=== PATIENT | female | born 1995 | race Two or more races ===

== ENCOUNTER 2024-10-24 08:45 | Emergency (ER) | payer MEDICAID, SELFPAY ==
[2024-10-24] VITALS (15 sets, daily range): BP systolic 97–137; BP diastolic 56–84; PULSE 71–99; RESP 16–97; TEMP 36.5–37.1; O2SAT 98–100; BMI 31.1
--- NOTE | 2024-10-24 | XR_ITS ---
Examinations: MRI Brain without intravenous contrast. MRA brain without intravenous contrast. MRA carotids without intravenous contrast 3-D vascular reconstructions Date and time of exam: October 24, 2024 0930 hours INDICATIONS: Stroke alert, onset focal neurologic deficit today, acute dizziness, slurred speech, right-sided facial numbness extremity weakness Technique: Multiple axial and sagittal images of the brain have been obtained MRA brain carotid images without contrast obtained, including 3-D postprocessing, vascular maximum intensity projection images Findings: Sellaturcica is not enlarged. The optic chiasm and infundibular stalk are not remarkable. Prepontine and interpeduncular cisterns are not enlarged. No localized enlargement of the medulla or david. Fourth ventricle and cerebellar tonsils normal in position. Subacute hemorrhage is not seen. Significant chronic ethmoid frontal sinusitis, retention cyst left maxillary antrum Fourth ventricle is midline. Mass in the cerebellopontine angle region is not evident. 7th and 8th nerve complexes exhibits symmetry. Globes are symmetrical with no retro-orbital mass. Increased white matter signal not seen Diffusion-weighted images demonstrate no focus of restricted diffusion Mass-effect upon the ventricular system is not identified. MRA carotid images no carotid stenoses. MRA brain images no large vessel occlusions Impression: Negative for acute hemorrhage, mass effect or midline shift No acute infarct No MR findings diagnostic for demyelinating disease
--- NOTE | 2024-10-24 08:50 | EDNOTE_ITS ---
Neuro Symptoms Deficit-RME/HPI General Chief Complaint: Neuro Symptoms/Deficit Stated Complaint: I feel I'm going to faint, body is numb Time Seen by Provider: 10/24/24 08:50 Arrival date/time: 10/24/24 08:45 RME / HPI RME / HPI Narrative: This section includes all my notes and documentations, including HPI, PE, and ED course.? 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 States she was standing when she suddenly had a near syncopal feeling with right sided numbness and heaviness. No loss of consciousness reported. States she woke up around 6am today and felt at her usual state of health. Was last known well at 08:30 am today. Denies any headaches, chest pain, shortness of breath, n/v/d. No other complaints. ROS: All negative except as documented in HPI. Physical Exam: General:? Alert and oriented.? No acute distress when remaining still.?? Eyes:? Conjunctivae and lids clear.? ENT:? No nasal congestion.? Neck:? Supple.? Heart:? RRR.? Lungs:? No respiratory distress.? Good air movement.? No rhonchi, wheezing, rales.?? Abdomen:? Soft and nontender.?? Legs:? No clubbing, cyanosis, edema.? Skin:? Warm and dry.?? Neuro:? Alert and oriented X 3.??CN 2-12 grossly normla. No peripheral motor deficits. I reviewed all diagnostic test results. My interpretation of the EKG is?sinus rhythm with no acute ST-T changes. My review of the head CT report is?no acute findings. My review of the brain MRI report is no acute findings. My review of the OB ultrasound report is IUP. Blood tests and urine tests?remarkable for Hgb 7.1. Influenza positive. At this point, diagnoses include?severe anemia and influenza. Treatment here included?IVF and blood transfusion and tamiflu. Significant improvement noted. Based on my best medical judgment, made decision no further evaluation or treatment indicated at this time.? Patient understands and agrees to the discharge instructions customized and printed, see below. Discharge Instructions from Dr. Young printed for you: 1. Fortunately, there is no life-threatening condition. Such as stroke or hear t attack. 2. But you have severe anemia. To help your body produce more red blood cells, take iron pills as prescribed today. And increase food rich in iron, such as red meat and egg yolks. 3. For influenza, take Tamiflu as prescribed. 4. For good hydration, increase oral fluid and maintain clear urine. If dark or yellow, increase oral fluid. Zofran for nausea/vomiting. 5. See a private doctor on 10/27/2024 for recheck and further care. Ask to review all test results and official radiology reports, to make sure you receive all necessary follow-ups and monitoring. Ask for help to see cooling tower technician for care. 6. Seek immediate medical care with worsening or with any concerns. Sheng Young MD Related Data Home Medications ?Medication ?Instructions ?Recorded ?Confirmed vitamin with calcium 1 tab PO QDAY 11/10/18 10/24/24 no.72-iron 27 mg-folic acid 1 mg tablet ( Vitamins Plus Low Iron) Previous Rx's ?Medication ?Instructions ?Recorded misoprostol 200 mcg tablet 800 mcg (4 x 200 mcg) PO .x1 #4 06/25/24 tabs ferrous sulfate 324 mg (65 mg 324 mg PO BID #60 tabs 08/07/24 iron) tablet,delayed release ferrous sulfate 325 mg (65 mg 325 mg PO BID #60 tabs 10/24/24 iron) tablet ondansetron 4 mg disintegrating 4 mg PO TID PRN nausea and 10/24/24 tablet vomiting #30 tabs Allergies Allergy/AdvReac Type Severity Reaction Status Date / Time No Known Allergies Allergy Verified 09/27/20 18:48 Review of Systems Review of Systems Systems Reviewed: All systems reviewed, normal except as documented Past Medical History Past Medical History NEUROLOGIC: Negative Neurological Disorders CARDIAC: Negative Cardiac Disorders GASTROINTESTINAL: Negative Gastrointestinal Disorders GENITOURINARY: Negative Genitourinary Disorders REPRODUCTIVE: Positive Previous Pregnancies ENDOCRINE: Negative Endocrine Disorders OTHER HISTORY: Positive Hospitalization (CHILDBIRTH) Family History FAMILY HISTORY: Negative Family Psychiatric Problems, Family Respiratory Disorders, Family Cardiac Disorders, Family Gastrointestinal Problems, Family Cancer, Family Surgery or Family Anesthesia Reaction Surgical History SURGICAL: Negative Section Social History SMOKING STATUS: Never smoker ED Exam Narrative Physical exam: As noted in HPI Course Quality Measures Suspected type of Stroke: Non Acute Last known well (date): 10/24/24 Last known well (time): 08:30 Tenecteplase given: Reason(s) TPA not given: Stroke severity too mild (non-disabling) not given stroke Orders Category Date Time Status Bedside Blood Glucose NOW Care 10/24/24 08:52 Completed Bedside COVID-19 Antigen Test NOW Care 10/24/24 10:45 Completed Bedside Influenza A&B Antigen Test NOW Care 10/24/24 10:45 Completed Assistant Editor NOW Care 10/24/24 08:52 Completed Continuous Pulse Oximetry NOW Care 10/24/24 08:52 Completed EKG (ED ONLY) *Do not use* NOW Care 10/24/24 08:52 Completed In and Out Catheter NEEDED Care 10/24/24 08:52 Completed Insert IV NOW Care 10/24/24 08:52 Completed MRI Screening NOW Care 10/24/24 09:18 Completed NIH Stroke Scale now Care 10/24/24 08:52 Completed NPO NOW Care 10/24/24 08:52 Completed Nurse Swallow Screen x1 Care 10/24/24 08:52 Completed Transfuse,blood/blood products NOW Care 10/24/24 10:55 Completed Consult to Neurology / Tele-Neurology Routine Cons 10/24/24 08:[address] angio stroke protocol Stat Exams 10/24/24 08:[address] stroke protocol Stat Exams 10/24/24 08:52 Completed EKG (ED Only) Stat Exams 10/24/24 08:52 Draft MR stroke protocol Stat Exams 10/24/24 Completed US OB <= 14 weeks fetus Stat Exams 10/24/24 10:53 Completed Beta HCG,Quantitative Stat Lab 10/24/24 09:08 Completed CBC Stat Lab 10/24/24 09:08 Completed Comprehensive Metabolic Panel Stat Lab 10/24/24 09:08 Completed Magnesium Stat Lab 10/24/24 09:08 Completed Partial Thromboplastin Time Stat Lab 10/24/24 09:08 Completed Prothrombin Time with INR Stat Lab 10/24/24 09:08 Completed Troponin I Stat Lab 10/24/24 09:08 Completed Type and Screen Stat Lab 10/24/24 11:05 Completed Urinalysis Stat Lab 10/24/24 10:28 Completed prbc [Red Blood Cells] Stat Lab 10/24/24 11:05 Completed Acetaminophen Ivpb [Ofirmev Inj] Med 10/24/24 13:00 Discontinued 1,000 mg in 100 ml IV NOW DiphenhydrAMINE INJ [Benadryl Inj] Med 10/24/24 13:00 Discontinued 25 mg IVP X1 ONE Ondansetron Inj [Zofran Inj] Med 10/24/24 08:52 Discontinued 4 mg IV Q4HR PRN Oseltamivir [Tamiflu] Med 10/24/24 11:32 Discontinued 75 mg PO X1 ONE Sodium Chloride 0.9% 1000 ml [Ns] 1,000 ml Med 10/24/24 09:00 Discontinued IV Q10H Oxygen Delivery NOW RT 10/24/24 08:52 Completed Vital Signs Vital signs: Vital Signs Pulse Rate 99 10/24/24 09:00 Respiratory Rate 18 10/24/24 09:00 Blood Pressure 137/84 H 10/24/24 09:00 Pulse Oximetry (%) 100 10/24/24 09:00 Oxygen Delivery Method Room Air 10/24/24 09:00 Pulse ox is 100% on room air which is adequate. Neuro Symptoms / Deficit Patient data External records reviewed:: [facility] previous records (I reviewed ED visit on 08/07/2024) Clinical information provided by:: patient Social determinants that could affect healthcare access:: none Patient has the following chronic illnesses:: Anemia, hx of blood transfusion How is presenting disease/condition affected by chronic disease/condition?: exacerbated by Evaluation data The following diagnostics were reviewed and interpreted by me:: lab results, radiology exam(s) and EKG tracing(s) (My interpretation of the EKG: NSR (77 bpm) with no ST-T changes. Sheng Young MD) Lab and/or radiology exams considered but not ordered:: None Interpretation Summary: severe anemia and influenza and 8 week IUP Medications / Prescriptions Medications or Prescriptions considered but not ordered:: None Medication administrations:: Medication Administration History Discontinued Medications Diphenhydramine HCl (Diphenhydramine Inj 50 Mg/Ml Vial) 25 mg IVP X1 ONE Stop: 10/24/24 13:01 Last Admin: 10/24/24 17:34 Dose: 25 mg Documented By: ALBERT Sodium Chloride (Ns) 1,000 mls @ 100 mls/hr IV Q10H CARMEN Stop: 10/25/24 08:59 Last Admin: 10/24/24 11:09 Dose: 100 mls/hr Documented By: ALBERT Acetaminophen (Ofirmev Inj) 1,000 mg in 100 mls @ 250 mls/hr IV NOW ONE Stop: 10/24/24 13:23 Last Admin: 10/24/24 17:36 Dose: 250 mls/hr Documented By: ALBERT Ondansetron HCl (Ondansetron Inj 2 Mg/Ml Inj 2 Ml) 4 mg IV Q4HR PRN PRN Reason: NAUSEA OR VOMITING Stop: 11/23/24 08:51 Oseltamivir Phosphate (Oseltamivir 75 Mg Capsule) 75 mg PO X1 ONE Stop: 10/24/24 11:33 Last Admin: 10/24/24 12:13 Dose: 75 mg Documented By: ALBERT Treatment here included?IVF and blood transfusion and tamiflu. Consultations Consultation(s) initiated? (list below): Yes Consultation #1 (Physician, Specialty, Details): I spoke with teleneurologist Dr. Nolan. States patient is not a tpa candidate given symptoms are non disabling. Time: 09:25 Diagnosis Neuro Differential Diagnosis: convulsions, delirium, subarachnoid hemorrhage, peripheral neuropathy, cerebrovascular accident, multiple sclerosis and transient cerebral ischemia Most likely diagnosis given after review of the tests above:: Severe anemia Influenza Admission Indicated Admission indicated?: not indicated Explain why admission is indicated or not indicated:: Admission criteria not met Admission Request Was there a request for admission?: No Disposition Plan Disposition Plan: Discharge Discharge Attestation Discharge Attestation: The patient and all family members were given an opportunity to ask questions and understood the discharge instructions. Discharge instructions specifically effects, indications for sooner follow up or return to the emergency department, and the expected course of current diagnosis. Patient condition: Stable Discharge Plan Plan Patient Disposition: HOME (Self Care) Prescriptions/Referrals Prescriptions/Med Rec: New ferrous sulfate 325 mg (65 mg iron) tablet 325 mg PO BID Qty: 60 5RF ondansetron 4 mg tablet,disintegrating 4 mg PO TID PRN (Reason: nausea and vomiting) Qty: 30 0RF No Action Vitamin Plus Low Iron 27 mg iron- 1 mg Tablet 1 tab PO QDAY misoprostol 200 mcg tablet 800 mcg PO .x1 Qty: 4 0RF Rx Instructions: Take 06/27/2024, morning ferrous sulfate 324 mg (65 mg iron) tablet,delayed release (DR/EC) 324 mg PO BID Qty: 60 0RF Referrals: Kemal Rico MD [Primary Care Provider] - In 1 week Problem List Clinical Impression: Severe anemia, Influenza, Patient/Caregiver Discharge Instructions Discharge Activity: activity as tolerated Education Materials: ED Anemia, Iron-Deficiency (Adult), ED Influenza (Adult), ED , New Dx Additional Instructions: Discharge Instructions from Dr. Young printed for you: 1. Fortunately, there is no life-threatening condition. Such as stroke or heart attack. 2. But you have severe anemia. To help your body produce more red blood cells, take iron pills as prescribed today. And increase food rich in iron, such as red meat and egg yolks. 3. For influenza, take Tamiflu as prescribed. 4. For good hydration, increase oral fluid and maintain clear urine. If dark or yellow, increase oral fluid. Zofran for nausea/vomiting. 5. See a private doctor on 10/27/2024 for recheck and further care. Ask to review all test results and official radiology reports, to make sure you receive all necessary follow-ups and monitoring. Ask for help to see cooling tower technician for care. 6. Seek immediate medical care with worsening or with any concerns. Instrucciones de olena del Dr. Young impresas para usted: 1. Afortunadamente, no hay ninguna afecci?n que ponga en peligro guerin dario, hiro un derrame cerebral o un ataque card?aco. 2. Naveed tiene anemia grave. Para ayudar a guerin cuerpo a producir m?s gl?bulos rojos, tome pastillas de vivienne seg?n lo prescrito hoy y aumente el consumo de alimentos ricos en vivienne, hiro wanda romero y yemas de huevo. 3. Para la gripe, tome Tamiflu seg?n lo prescrito. 4. Para elliot buena hidrataci?n, aumente la ingesta de l?quidos por v?a oral y mantenga la orina justo. Si es oscura o amarilla, aumente la ingesta de l?quidos por v?a oral. Zofran para las n?useas y los v?mitos. 5. Visite a un m?dico privado el 27/10/2024 para que le edy un nuevo control y le brinden m?s atenci?n. Pida que revisen todos los resultados de las pruebas y los informes radiol?gicos oficiales para asegurarse de recibir todos los seguimientos y controles necesarios. Pida ayuda para cyaden a un obstetra para recibir atenci?n . 6. Busque atenci?n m?dica inmediata si empeora o tiene alguna inquietud. Print Language: Tamazight Stand Alone Forms: [employer]ney Award Info., Work/School Release, Patient Portal Info Letter
--- NOTE | 2024-10-24 08:52 | XR_ITS ---
Examination: CT brain head without contrast. 2-D sagittal coronal reconstructions Date and time of exam:October 24, 2024 at 0859 hours INDICATIONS: Stroke alert, onset focal neurologic deficit, right-sided facial numbness today CTDI: vol (mGy):48 DLP: (mGycm):985 Technique: Multiple CT axial sections of the brain have been obtained, 5 mm slice thickness. Contrast has not been administered. 2-D sagittal, coronal reconstructions have been obtained Low dose protocols were performed. One or more of the following dose reduction techniques were used; automated exposure control, adjustment of the mA and/or KV according to patient size, use of iterative reconstruction technique. Findings: No significant ventricular enlargement. Intra-axial or extra-axial hemorrhage density is not seen. No mass effect or midline shift Basal cisterns are not remarkable. Fourth ventricle is midline. Cranial vault intact. Impression: Negative for acute hemorrhage, mass effect or midline shift Brain MRI MRA without contrast, stroke protocol, would best assess for demyelinating disease, acute ischemic change
--- NOTE | 2024-10-24 08:52 | EKG_ITS ---
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
[2024-10-24 09:22] LABS: Basophils % (Auto) 1 % (0-2.5); Eosinophils # (Auto) 0.1 Thou/mm3 (0.0-0.5); Eosinophils % (Auto) 3 % (0-10); Immature Granulocytes % (Auto) 1 % (0-0); Immature Granulocytes Auto 0.03 Thou/mm3 (0.00-0.00); Lymphocytes # (Auto) 0.9 Thou/mm3 (1.0-4.8); Lymphocytes % (Auto) 18 % (10-50); Mean Corpuscular HGB Conc 28.4 g/dl (31.0-37.0); Mean Corpuscular Hemoglobin 18.5 pg (25.0-35.0); Mean Corpuscular Volume 65 fL (80-100); Monocytes # (Auto) 0.7 Thou/mm3 (0.0-0.8); Monocytes % (Auto) 13 % (0-12); Neutrophils # (Auto) 3.4 Thou/mm3 (1.8-7.7); Neutrophils % (Auto) 65 % (37-80); Nucleated Red Blood Cell % 0 /100 WBC (0); Platelet Count 338 Thou/mm3 (140-440); RDW Standard Deviation 44.2 fL (36.4-46.3); Red Blood Count 3.83 Miln/mm3 (4.00-5.20); White Blood Count 5.3 Thou/mm3 (3.6-11.0)
--- NOTE | 2024-10-24 09:32 | ESCONSULT_ITS ---
Tele Neuro Consultation Consultation Date 10/24/24 Consultation Narrative [facility] Patient Name:???Gema Edmondson Date of :???1995 Date of Service:???10/24/2024 08:52:59 Diagnosis:?R20.2 - Paresthesia of skin Impression: ?Patient is a 29 yo F currently 8 weeks with no PMH who p/w dizziness, presyncopal feeling with associated right sided numbness and heaviness. LNK 830 AM per patient. On exam NIHSS of 1, for increased sensation on the right side/reduced on the left. No objective weakness or drift. No associated headache. She is able to ambulate unassisted. CTH showed no acute findings. BP 137/84. Uncertain etiology of current symptoms. History not c/w CVST, no current headache. Possible stroke cannot be completely excluded. Given mild, nondisabling deficits (with increased sensation as opposed to reduced sensation on her subjectively affected side) thrombolytic therapy is not recommended at this time. The potential risks in the setting of outweigh the benefits. However, will obtain STAT MRI brain to evaluate for acute ischemia which may warrant consideration of thrombolytic therapy, underlying demyelinating disease or acute intracranial pathology. ?Addendum: ?Subsequent MRI brain images and read reviewed. No acute intracranial pathology noted. No acute ischemia or demyelinating disease. ? Our recommendations are outlined below. Recommendations: ? Bedside Swallow Eval ? DVT Prophylaxis ? IV Fluids, Normal Saline ? Head of Bed 30 Degrees ? Euglycemia and Avoid Hyperthermia (PRN Acetaminophen) ?- Rec consultation with OB. With negative MRI brain corresponding int racranial pathology is not suspected. History provided not suggestive of seizure or CVST/DVT at this time. ?-Can consider outpt neurology follow-up in 1-3 weeks. ?-If recurrent event or new onset headaches seek immediate medical attention Sign Out: ? Discussed with Emergency Department Provider Advanced Imaging: Advanced Imaging Deferred because: Patient is , risk of iodinated contrast. MRI brain obtained instead Metrics: Last Known Well: 10/24/2024 08:30:00 Dispatch Time: 10/24/2024 08:52:59 Arrival Time: 10/24/2024 08:45:00 Initial Response Time: 10/24/2024 08:56:32Symptoms: dizziness, right sided numbness. Initial patient interaction: 10/24/2024 09:00:00 NIHSS Assessment Completed: 10/24/2024 09:17:00Patient is not a candidate for Thrombolytic. Thrombolytic Medical Decision: 10/24/2024 09:19:59Patient was not deemed candidate for Thrombolytic because of following reasons: other diagnosis suspected Uncertain etiology of current symptoms. Possible stroke cannot be completely excluded. Given mild, nondisabling deficits (with increased sensation as opposed to reduced sensation on her subjectively affected side) thrombolytic therapy is not recommended at this time. THe potential risks in the setting of outweigh the benefits. . CT head showed no acute hemorrhage or acute core infarct. I personally Reviewed the CT Head and it Showed no acute findings Primary Provider Notified of Diagnostic Impression and Management Plan on: 10/24/2024 09:27:26 History of Present Illness:Patient is a 29 year old Female. Patient was brought by private transportation with symptoms of dizziness, right sided numbness. Patient is a 29 yo F currently 8 weeks with no PMH who p/w dizziness, presyncopal feeling with associated right sided numbness and heaviness. LNK 830 AM per patient. She reports she awoke at 6AM in her USOH. She was standing up when she began to feel very dizzy and light headed as if she was going to pass out. She felt as if she could not get speak at the time. Followed by numbness of her right side, with feeling of heaviness. No LOC. No vision changes. No associated headache. No vision changes. No confusion. No abnormal movements. No LOC. No n/v. No double vision. No history of clotting disorder. No complications during this . She had an in 06/2024, during which time she had blood loss anemia with a syncopal event with similar dizziness. No history of seizures or strokes. She denies similar symptoms in the past. Past Medical History: ?There is no history of Stroke ?There is no history of Seizures Other PMH:? as noted above Medications: No Anticoagulant use? No Antiplatelet use Reviewed EMR for current medications Allergies:? Reviewed Social History: Drug Use: No Family History: There is no family history of premature cerebrovascular disease pertinent to this consultation ROS : 14 Points Review of Systems was performed and was negative except mentioned in HPI. Past Surgical History: There Is No Surgical History Contributory To Today?s Visit Examination: BP(137//84),?Pulse(104), 1A: Level of Consciousness - Alert; keenly responsive?+ 0 1B: Ask Month and Age - Both Questions Right?+ 0 1C: Blink Eyes & Squeeze Hands - Performs Both Tasks?+ 0 2: Test Horizontal Extraocular Movements - Normal?+ 0 3: Test Visual Astudillo - No Visual Loss?+ 0 4: Test Facial Palsy (Use Grimace if Obtunded) - Normal symmetry?+ 0 5A: Test Left Arm Motor Drift - No Drift for 10 Seconds?+ 0 5B: Test Right Arm Motor Drift - No Drift for 10 Seconds?+ 0 6A: Test Left Leg Motor Drift - No Drift for 5 Seconds?+ 0 6B: Test Right Leg Motor Drift - No Drift for 5 Seconds?+ 0 7: Test Limb Ataxia (FNF/Heel-Laws) - No Ataxia?+ 0 8: Test Sensation - Mild-Moderate Loss: Less Sharp/More Dull?+ 1 9: Test Language/Aphasia - Normal; No aphasia?+ 0 10: Test Dysarthria - Normal?+ 0 11: Test Extinction/Inattention - No abnormality?+ 0 NIHSS Score:?1 NIHSS Free Text :?Right sided sensation is stronger than the left ?Right leg subj heavy. 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 Patient was informed of the technology being used for this visit and agreed to proceed. Patient located in hospital and provider located at home/office setting. Patient is being evaluated for possible acute neurologic impairment and high probability of imminent or life-threatening deterioration. I spent total of 35 minutes providing care to this patient, including time for face to face visit via telemedicine, review of medical records, imaging studies and discussion of findings with providers, the patient and/or family. Dr Mackenzie Nolan [facility] For Inpatient follow-up with [facility] physician please call [facility] at . As we are not an outpatient service for any post hospital discharge needs please contact the hospital for assistance. If you have any questions for the [facility] physicians or need to reconsult for clinical or diagnostic changes please contact us via [facility] at .
[2024-10-24 09:35] LABS: Partial Thromboplastin Time 26.5 Seconds (22.0-36.0); Prothrombin Time 10.9 Seconds (9.0-12.2)
[2024-10-24 09:38] LABS: Alanine Aminotransferase 13 U/L (10-49); Albumin, Serum 4.7 gm/dL (3.5-5.0); Albumin/Globulin Ratio 1.8 (1.2-2.2); Alkaline Phosphatase 86 U/L (46-116); Anion Gap 9 (7-16); Aspartate Amino Transferase 12 U/L (0-34); BUN/Creatinine Ratio 12 Ratio (12-20); Bilirubin,Total 0.3 mg/dL (0.3-1.2); Blood Urea Nitrogen 7 mg/dL (9-23); Calcium 9.2 mg/dL (8.3-10.6); Calcium (Corrected) 9.2 mg/dL (8.5-10.1); Carbon Dioxide 23.4 mMol/L (20.0-31.0); Chloride 105 mMol/L (98-107); Creatinine (Component) 0.6 mg/dL (0.6-1.3); Globulin 2.6 gm/dL (2.3-3.5); Glucose 82 mg/dL (74-106); Magnesium 2.1 mg/dL (1.6-2.6); Osmolality,Calculated 270 (275-295); Potassium 3.5 mMol/L (3.4-5.1); Sodium 137 mMol/L (136-145); Total Protein 7.3 gm/dL (5.7-8.2); Troponin I < 0.020 ng/mL (0.0-0.045); eGFR > 60 See Note
--- NOTE | 2024-10-24 10:17 | PC.NURSE ---
BIBA from home for right side numbness/weakness starting @ 0830 after waking up at 0600 this morning. No facial droop noted nor slurring of words and patient able to answer all questions appropriately as well as perform NIH tasks. patient NIH score of 1 due to right sided weakness. Previous hx of 1 and patient is currently 8 wks with 4th child. Tunisian speaking only with no known allergies.
[2024-10-24 10:23] LABS: Hemoglobin 7.1 g/dL (12.0-16.0)
[2024-10-24 10:38] LABS: Collection Type, Urine Clean Catch
[2024-10-24 10:48] LABS: Bacteria,Urine Rare; Bilirubin,Urine Negative (Negative); Blood,Urine Negative (Negative); Clarity,Urine Clear (Clear/Hazy); Color,Urine Yellow (Lt Yel-Yel); Glucose, Urine Negative (Negative); Ketones,Urine Negative (Negative); Leukocyte Esterase,Urine Negative (Negative); Nitrite,Urine Negative (Negative); Protein,Urine 1+ (Neg - Trace); RBC,Urine 3 /hpf (0-3); Specific Gravity,Urine 1.026 (1.001-1.035); Squamous Epithelial Cell,Urine < 1 /hpf (0-5); Urobilinogen,Urine Negative mg/dL (0.0-1.0); WBC,Urine 4 /hpf (0-5)
--- NOTE | 2024-10-24 10:53 | XR_ITS ---
Examination: Complete OB ultrasound, less than 14 weeks, transabdominal Date and time of exam: October 24, 2024 1216 hours INDICATIONS: Onset dizziness today, 8 week by history Technique: Obstetrical ultrasound images less than 14 weeks performed via transabdominal imaging Findings: A normal shaped single intrauterine gestation is present in the uterus. Uterus 13.5 x 5.2 x 8.0 cm CRL 2.0 cm corresponds to 8 weeks 4 days gestational age Cardiac motion 166 BPM Ultrasonographic survey of visible and placental structures unremarkable. Amniotic fluid volume appears appropriate for this estimated gestational age. Right ovary 2.7 x 2.3 x 2.7 cm arterial flow Left ovary 3.9 x 3.2 x 2.9 cm arterial flow 20 mm follicular cyst. IMPRESSION: Viable intrauterine gestation 8 weeks 4 days
[2024-10-24] MEDS: SODIUM CHLORIDE 0.9% 1000 ML 1,000 ML 100 ML IV (11:09)
[2024-10-24] MEDS: OSELTAMIVIR 75 MG CAPSULE PO (12:13)
[2024-10-24 12:32] LABS: Beta HCG,Quantitative 87057 mIU/mL (<5.0)
--- NOTE | 2024-10-24 16:05 | PC.NURSE ---
CT screening done at 1600 done in error. Undo edit at 1605.
[2024-10-24] MEDS: DiphenhydrAMINE INJ 50 MG/ML VIAL 25 MG IVP (17:34)
[2024-10-24] MEDS: ACETAMINOPHEN IVPB 1,000 MG/100 ML VIAL 250 MG IV (17:36)
== END 2024-10-24 18:15 | disposition home or self-care (01) ==
PROVIDERS: Emergency Provider Emergency Medicine; PCP Family Medicine
DX: O99.011 Anemia complicating pregnancy, first trimester (principal); O99.511 Diseases of the respiratory system complicating pregnancy, first trimester; J11.1 Influenza due to unidentified influenza virus with other respiratory manifestations; R20.0 Anesthesia of skin; R29.818 Other symptoms and signs involving the nervous system; R42 Dizziness and giddiness; R47.81 Slurred speech; R53.1 Weakness; Z3A.08 8 weeks gestation of pregnancy
CPT/HCPCS: 36415; 36430; 70450; 70544; 76801; 80053; 81001; 83735; 84484; 84702; 85025; 85610; 85730; 86850; 86900; 86901; 86923; 87400; 87811; 93005; 96374; 99285; J0131; J1200; J7030; P9016; A9270

== ENCOUNTER 2024-12-30 12:02 | Emergency (ER) | payer MEDICAID, SELFPAY ==
[2024-12-30 12:23] VITALS: BP 148/84; PULSE 95; RESP 18; TEMP 36.8; O2SAT 99; BMI 30.4
--- NOTE | 2024-12-30 12:28 | XR_ITS ---
Examination: Complete OB ultrasound greater than 14 weeks Date and time of exam: December 30, 2024 1418 hours INDICATIONS: Pelvic pain beginning 2 days ago Findings: Viable intrauterine single fetus with single amniotic sac presentation variable Cardiac motion 143 BPM Placenta posterior fundal grade 2 Umbilical cord insertion 3 vessel seen Amniotic fluid index adequate spine maternal left Cervix 3.7 cm Right ovary 2.9 cm arterial flow Left ovary 2.9 cm arterial flow Composite estimated gestational age based on BPD, head circumference, abdominal circumference, femur length is 18 weeks 4 days Estimated weight 234 g. Survey of intracranial anatomy, spinal anatomy, abdominal anatomy, four-chamber heart performed with no abnormalities identified. Impression: Viable intrauterine gestation variable presentation.
--- NOTE | 2024-12-30 12:28 | PD.EDRME ---
Rapid Medical Screening Exam RME Arrival date/time: 12/30/24 12:02 29-year-old female approximately 16 weeks presents emergency department complains of lower back pain Chief Complaint: Back Pain/Injury Time Seen by Provider: 12/30/24 12:10 Vital signs: Vital Signs Temperature 98.2 F 12/30/24 12:23 Pulse Rate 95 12/30/24 12:23 Respiratory Rate 18 12/30/24 12:23 Blood Pressure 148/84 H 12/30/24 12:23 Pulse Oximetry (%) 99 12/30/24 12:23 Oxygen Delivery Method Room Air 12/30/24 12:23
[2024-12-30 13:03] LABS: Collection Type, Urine Clean Catch
[2024-12-30 13:09] LABS: Basophils % (Auto) 0 % (0-2.5); Eosinophils # (Auto) 0.1 Thou/mm3 (0.0-0.5); Eosinophils % (Auto) 1 % (0-10); Hematocrit 32.1 % (36.0-46.0); Hemoglobin 10.3 g/dL (12.0-16.0); Immature Granulocytes % (Auto) 1 % (0-0); Immature Granulocytes Auto 0.08 Thou/mm3 (0.00-0.00); Lymphocytes # (Auto) 1.3 Thou/mm3 (1.0-4.8); Lymphocytes % (Auto) 11 % (10-50); Mean Corpuscular HGB Conc 32.1 g/dl (31.0-37.0); Mean Corpuscular Hemoglobin 24.5 pg (25.0-35.0); Mean Corpuscular Volume 76 fL (80-100); Monocytes # (Auto) 0.6 Thou/mm3 (0.0-0.8); Monocytes % (Auto) 5 % (0-12); Neutrophils # (Auto) 9.7 Thou/mm3 (1.8-7.7); Neutrophils % (Auto) 83 % (37-80); Nucleated Red Blood Cell % 0 /100 WBC (0); Platelet Count 283 Thou/mm3 (140-440); RDW Standard Deviation 54.2 fL (36.4-46.3); White Blood Count 11.7 Thou/mm3 (3.6-11.0)
[2024-12-30 13:21] LABS: Bacteria,Urine Rare; Bilirubin,Urine Negative (Negative); Blood,Urine Trace (Negative); Clarity,Urine Turbid (Clear/Hazy); Color,Urine Lt-Yellow (Lt Yel-Yel); Glucose, Urine Negative (Negative); Ketones,Urine Negative (Negative); Leukocyte Esterase,Urine Positive (Negative); Nitrite,Urine Negative (Negative); Protein,Urine 1+ (Neg - Trace); RBC,Urine 5 /hpf (0-3); Specific Gravity,Urine 1.007 (1.001-1.035); Squamous Epithelial Cell,Urine 6 /hpf (0-5); Urobilinogen,Urine Negative mg/dL (0.0-1.0); WBC,Urine 51 /hpf (0-5)
[2024-12-30 13:37] LABS: Alanine Aminotransferase 10 U/L (10-49); Albumin, Serum 4.3 gm/dL (3.5-5.0); Albumin/Globulin Ratio 1.5 (1.2-2.2); Alkaline Phosphatase 91 U/L (46-116); Anion Gap 11 (7-16); Aspartate Amino Transferase 11 U/L (0-34); BUN/Creatinine Ratio 10 Ratio (12-20); Bilirubin,Total 0.3 mg/dL (0.3-1.2); Blood Urea Nitrogen < 5 mg/dL (9-23); Calcium 9.3 mg/dL (8.3-10.6); Calcium (Corrected) 9.3 mg/dL (8.5-10.1); Carbon Dioxide 21.9 mMol/L (20.0-31.0); Chloride 103 mMol/L (98-107); Creatinine (Component) 0.5 mg/dL (0.6-1.3); Estimated Creatinine Clearance 167.1 mL/min (>60); Globulin 2.9 gm/dL (2.3-3.5); Glucose 81 mg/dL (74-106); Osmolality,Calculated 268 (275-295); Potassium 3.7 mMol/L (3.4-5.1); Sodium 136 mMol/L (136-145); Total Protein 7.2 gm/dL (5.7-8.2); eGFR > 60 See Note
[2024-12-30 13:51] LABS: Beta HCG,Quantitative 9879 mIU/mL (<5.0)
--- NOTE | 2024-12-30 15:11 | PD.EDBACK ---
ED Back Injury Pain RME/HPI General Chief Complaint: Back Pain/Injury Stated Complaint: 17 weeks OB, pain in abd/lower back Time Seen by Provider: 12/30/24 12:10 Arrival date/time: 12/30/24 12:02 29-year-old female with no significant medical problems approximately 16 weeks presents emergency department complains of lower back pain Patient reports no fever nausea or vomiting no saddle anesthesia no loss of bowel or bladder Limitations: no limitations RME / HPI RME / HPI Narrative: 12/30/24 12:02 29-year-old female approximately 16 weeks presents emergency department complains of lower back pain Related Data Home Medications ?Medication ?Instructions ?Recorded ?Confirmed vitamin with calcium 1 tab PO QDAY 11/10/18 10/24/24 no.72-iron 27 mg-folic acid 1 mg tablet ( Vitamins Plus Low Iron) Previous Rx's ?Medication ?Instructions ?Recorded misoprostol 200 mcg tablet 800 mcg (4 x 200 mcg) PO .x1 #4 06/25/24 tabs ferrous sulfate 324 mg (65 mg 324 mg PO BID #60 tabs 08/07/24 iron) tablet,delayed release ferrous sulfate 325 mg (65 mg 325 mg PO BID #60 tabs 10/24/24 iron) tablet ondansetron 4 mg disintegrating 4 mg PO TID PRN nausea and 10/24/24 tablet vomiting #30 tabs acetaminophen 500 mg capsule 1,000 mg (2 x 500 mg) PO Q8HR PRN 12/30/24 pain #30 caps cephalexin 500 mg capsule 500 mg PO BID 7 days #14 caps 12/30/24 Allergies Allergy/AdvReac Type Severity Reaction Status Date / Time No Known Allergies Allergy Verified 12/30/24 12:12 Review of Systems Review of Systems Systems Reviewed: All systems reviewed, normal except as documented Constitutional Constitutional: Reports system reviewed and no additional complaints, except as documented, Denies fever(s) and Denies headache(s) Eyes Eyes: Reports system reviewed and no additional complaints, except as documented and Denies blurry vision ENT Ears, Nose, Mouth, and Throat: Reports system reviewed and no additional complaints, except as documented, Denies headache(s), Denies nasal congestion and Denies nasal discharge Cardiovascular Cardiovascular: Reports system reviewed and no additional complaints, except as documented, Denies chest pain and Denies dyspnea Respiratory Respiratory: Reports system reviewed and no additional complaints, except as documented, Denies chest congestion, Denies cough and Denies dyspnea Gastrointestinal Gastrointestinal: Reports system reviewed and no additional complaints, except as documented and Denies abdominal pain Genitourinary Genitourinary: Reports system reviewed and no additional complaints, except as documented and Denies abnormal vaginal bleeding Musculoskeletal Musculoskeletal: Reports system reviewed and no additional complaints, except as documented, Denies arthralgias, Reports back pain, Denies muscle weakness, Denies myalgias, Denies numbness, Denies stiffness and Denies tingling Integumentary/Breasts Skin/Breast: Reports system reviewed and no additional complaints, except as documented and Denies rash Neurologic Neurologic: Reports system reviewed and no additional complaints, except as documented, Reports as per HPI, Denies headache(s), Denies numbness and Denies tingling Past Medical History Past Medical History NEUROLOGIC: Negative Neurological Disorders or Seizures CARDIAC: Negative Cardiac Disorders or Congestive Heart Failure RESPIRATORY: Negative Chronic Obstructive Pulmonary Disease (COPD) GASTROINTESTINAL: Negative Gastrointestinal Disorders, Hepatitis or Colorectal Cancer GENITOURINARY: Negative Genitourinary Disorders, Renal Disease or Prostate Cancer REPRODUCTIVE: Positive Previous Pregnancies; Negative Breast Cancer, Endometriosis, Pelvic Inflammatory Disease, Testicular Cancer or Uterine Prolapse MUSCULOSKELETAL: Negative Musculoskeletal Disorders or Bone Cancer ENDOCRINE: Negative Endocrine Disorders, Diabetes Mellitus Type 1 or Diabetes Mellitus Type 2 HEMATOLOGIC: Negative Blood Disorders or Anemia OTHER HISTORY: Positive Hospitalization (CHILDBIRTH); Negative Autoimmune Disease, Falls, Blood Transfusions, Anesthesia Reactions, Human Immunodeficiency Virus (HIV), Chicken Pox, Measles, Mumps, Rubella (Mongolian Measles), Pertussis, Clostridium Difficile, Cancer, Breast Cancer, Cervical Cancer, Colorectal Cancer, Lung Cancer, Ovarian Cancer, Prostate Cancer or Testicular Cancer Family History FAMILY HISTORY: Negative Family Psychiatric Problems, Family Respiratory Disorders, Family Cardiac Disorders, Family Gastrointestinal Problems, Family Cancer, Family Surgery or Family Anesthesia Reaction Surgical History SURGICAL: Negative Section Social History SMOKING STATUS: Never smoker ED Exam General Limitations: Present no limitations General appearance: Present alert and in no apparent distress Head Head exam: Present atraumatic, normocephalic and normal inspection Eye Eye exam: Present normal appearance, PERRL and EOMI; Absent conjunctival injection ENT ENT exam: Present normal exam, normal oropharynx and mucous membranes moist Neck Neck exam: Present normal inspection, full ROM and trachea midline Chest Chest inspection: Present normal inspection and symmetric chest wall rise Respiratory Respiratory exam: Present normal lung sounds bilaterally; Absent respiratory distress, wheezes, stridor, accessory muscle use or prolonged expiratory phase Cardiovascular Cardiovascular exam: Present regular rate, normal rhythm and normal heart sounds Abdominal Exam Abdominal exam: Present soft and normal bowel sounds; Absent distention, tenderness, guarding, rebound or rigidity Extremities Exam Extremities exam: Present normal inspection and full ROM Back Exam Back exam: Present normal inspection and full ROM Neurological Exam Neurological exam: Present alert, oriented X3 and CN II-XII intact Psychiatric Psychiatric exam: Present normal affect and normal mood Skin Skin exam: Present warm, dry, intact and normal color Course Quality Measures none Orders Category Date Time Status US OB >= 14 weeks Fetus Stat Exams 12/30/24 12:28 Completed ABO/RH Type Stat Lab 12/30/24 12:50 Completed Beta HCG,Quantitative Stat Lab 12/30/24 12:50 Completed CBC Stat Lab 12/30/24 12:50 Completed Comprehensive Metabolic Panel Stat Lab 12/30/24 12:50 Completed UA [Urinalysis] Stat Lab 12/30/24 12:59 Completed Urine Culture Stat Lab 12/30/24 12:59 Received Vital Signs Vital signs: Vital Signs Temperature 98.2 F 12/30/24 12:23 Pulse Rate 95 12/30/24 12:23 Respiratory Rate 18 12/30/24 12:23 Blood Pressure 148/84 H 12/30/24 12:23 Pulse Oximetry (%) 99 12/30/24 12:23 Oxygen Delivery Method Room Air 12/30/24 12:23 O2 saturation 99% room air within normal limits Back Pain / Injury MDM Narrative MDM Narrative:: 29-year-old female with no significant medical problems approximately 16 weeks presents emergency department complains of lower back pain Patient reports no fever nausea or vomiting no saddle anesthesia no loss of bowel or bladder On exam patient well-appearing patient does not appear ill or toxic patient does not appear in acute distress Lab work as well as ultrasound obtained Ultrasound unremarkable viable at this time Lab work unremarkable other than patient does have mild UTI patient will treat with outpatient course of antibiotics Patient instructed to follow-up with [facility]PER[facility] soon as possible for emergent concerns return immediately Patient data External records reviewed:: [facility] previous records Clinical information provided by:: patient Social determinants that could affect healthcare access:: none Patient has the following chronic illnesses:: None How is presenting disease/condition affected by chronic disease/condition?: no chronic disease Evaluation data The following diagnostics were reviewed and interpreted by me:: lab results and radiology exam(s) Lab and/or radiology exams considered but not ordered:: Labs radiology obtain Interpretation Summary: Reviewed by me Medications / Prescriptions Medications or Prescriptions considered but not ordered:: Given Medication administrations:: Given Consultations Consultation(s) initiated? (list below): No Diagnosis Differential diagnosis back pain/injury: lumbar radiculopathy, sciatica and strain of lumbar region Most likely diagnosis given after review of the tests above:: Back pain, UTI Admission Indicated Admission indicated?: not indicated Admission Request Was there a request for admission?: No Disposition Plan Disposition Plan: Discharge Discharge Attestation Discharge Attestation: The patient and all family members were given an opportunity to ask questions and understood the discharge instructions. Discharge instructions specifically effects, indications for sooner follow up or return to the emergency department, and the expected course of current diagnosis. Patient condition: Stable Discharge Plan Plan Patient Disposition: HOME (Self Care) Disposition Comment: Stable Prescriptions/Referrals Prescriptions/Med Rec: New cephalexin 500 mg capsule 500 mg PO BID 7 Days Qty: 14 0RF acetaminophen 500 mg capsule 1,000 mg PO Q8HR PRN (Reason: pain) Qty: 30 0RF No Action Vitamin Plus Low Iron 27 mg iron- 1 mg Tablet 1 tab PO QDAY misoprostol 200 mcg tablet 800 mcg PO .x1 Qty: 4 0RF Rx Instructions: Take 06/27/2024, morning ferrous sulfate 324 mg (65 mg iron) tablet,delayed release (DR/EC) 324 mg PO BID Qty: 60 0RF ferrous sulfate 325 mg (65 mg iron) tablet 325 mg PO BID Qty: 60 5RF ondansetron 4 mg tablet,disintegrating 4 mg PO TID PRN (Reason: nausea and vomiting) Qty: 30 0RF Problem List Clinical Impression: Back pain, Urinary tract infection during Patient/Caregiver Discharge Instructions Education Materials: Back Safety: Sitting Additional Instructions: Please follow-up with [facility]PER[facility] as discussed for worsening symptoms or concerns return to the ER immediately for further evaluation Print Language: Romansh Stand Alone Forms: Cortney Award Info., Work/School Release, Patient Portal Info Letter JOBY/REGINALD Supervising Physician JOBY/REGINALD Supervising Physician: Dr stanton
== END 2024-12-30 18:12 | disposition home or self-care (01) ==
LOC: SERX 15:13
PROVIDERS: Nurse Practitioner Primary Care; Emergency Provider Emergency Medicine; PCP Nurse Practitioner Women's Health
DX: O23.42 Unspecified infection of urinary tract in pregnancy, second trimester (principal); N39.0 Urinary tract infection, site not specified; Z3A.16 16 weeks gestation of pregnancy
CPT/HCPCS: 36415; 76805; 80053; 81001; 84702; 85025; 86900; 86901; 87086; 99284

== ENCOUNTER 2025-06-03 20:48 | Observation (INO) | payer MEDICAID, SELFPAY ==
[2025-06-03] VITALS (16 sets, daily range): BP systolic 110–113; BP diastolic 62–72; PULSE 87–106; RESP 18–99; TEMP 36.4; O2SAT 97–100; BMI 35.5
[2025-06-03 21:38] LABS: ROM Kit Lot # 58102387; Swb Mxed in Solvent 1 min? Yes
[2025-06-03 21:39] LABS: ROM Swab Mixed By: YOUNB; Rupture of Fetal Membranes Negative (Negative)
--- NOTE | 2025-06-03 21:44 | XR_ITS ---
Examination: age limited TECHNIQUE: Limited transabdominal sonographic images pelvis Date and time: June 03, 2025, 2158 hours INDICATIONS: Leaking amniotic fluid today FINDINGS: Amniotic fluid index 7.2 cm Cardiac motion 145 bpm IMPRESSION: Amniotic fluid index 7.2 cm
--- NOTE | 2025-06-04 03:45 | PD.LDPN ---
Documentation for date of: 06/04/25 OB Labor Progress Note Pelvic Exam Dilation (cm): 1 Effacement (%): THICK station: -3 Amniotic membrane status: Intact Contractions Monitor mode: External Contraction frequency: IRREGULAR Contraction intensity: Mild Status status: Category l Assessment and Plan Comments: Triage Note (for encounter on 06/03) Patient is a 29yo with SIUP at 40wk presenting to L&D for vaginal leakage of fluid. She notes no painful/regular ctx, no vaginal bleeding. Normal movement. Sees [facility] for [facility]. ROS negative other than what was described above. Vitals wnl, afebrile General: well developed, well nourished, no acute distress, conversant Cardiac: normal heart rate Lungs: breathing without distress Abdomen: soft, gravid, non-tender, no rebound or guarding Extremities: no pain with palpation of calves Per RN: No gross leakage of fluid or pooling with collection of AmniSure NST: Reactive, +accels, no decels, mod asad [place]: no regular ctx pattern Radiology: Examination: age limited TECHNIQUE: Limited transabdominal sonographic images pelvis Date and time: June 03, 2025, 2158 hours INDICATIONS: Leaking amniotic fluid today FINDINGS: Amniotic fluid index 7.2 cm Cardiac motion 145 bpm IMPRESSION: Amniotic fluid index 7.2 cm Labs: AmniSure ROM Test: Negative Assessment: Patient is a 29yo with SIUP at 40wk with SIUP at wk with no evidence of ROM. Negative AmniSure and SILVERIO 7.2cm. Vitals wnl, benign exam. Reassuring status based on NST/SILVERIO (modified BPP). Plan: -Discussed findings with patient -Continue routine follow up with [facility] within 1 week -Return precautions discussed Halle Toledo MD
== END 2025-06-03 22:49 | disposition home or self-care (01) ==
PROVIDERS: Admitting Provider Obstetrics & Gynecology; Visit Provider Obstetrics & Gynecology
DX: Z34.83 Encounter for supervision of other normal pregnancy, third trimester (principal); Z3A.40 40 weeks gestation of pregnancy
CPT/HCPCS: 59025; 59899; 76815; 84112

== ENCOUNTER 2025-06-04 07:21 | Inpatient (IN) | payer MEDICAID, SELFPAY ==
[2025-06-04] VITALS (182 sets, daily range): BP systolic 81–148; BP diastolic 45–83; PULSE 69–157; RESP 16–20; TEMP 36.7–37.3; O2SAT 70–100; BMI 32.2
[2025-06-04 09:10] LABS: Basophils # (Auto) 0.0 Thou/mm3 (0.0-0.2); Basophils % (Auto) 1 % (0-2.5); Eosinophils # (Auto) 0.1 Thou/mm3 (0.0-0.5); Eosinophils % (Auto) 1 % (0-10); Hematocrit 32.0 % (36.0-46.0); Hemoglobin 10.5 g/dL (12.0-16.0); Immature Granulocytes Auto 0.10 Thou/mm3 (0.00-0.00); Lymphocytes # (Auto) 1.1 Thou/mm3 (1.0-4.8); Lymphocytes % (Auto) 14 % (10-50); Mean Corpuscular HGB Conc 32.8 g/dl (31.0-37.0); Mean Corpuscular Hemoglobin 25.7 pg (25.0-35.0); Mean Corpuscular Volume 78 fL (80-100); Monocytes # (Auto) 0.6 Thou/mm3 (0.0-0.8); Monocytes % (Auto) 8 % (0-12); Neutrophils # (Auto) 5.6 Thou/mm3 (1.8-7.7); Neutrophils % (Auto) 75 % (37-80); Nucleated Red Blood Cell # 0.00 Thou/mm3 (0.00-0.00); Nucleated Red Blood Cell % 0 /100 WBC (0); Platelet Count 185 Thou/mm3 (140-440); RDW Standard Deviation 49.1 fL (36.4-46.3); Red Blood Count 4.08 Miln/mm3 (4.00-5.20); White Blood Count 7.5 Thou/mm3 (3.6-11.0)
[2025-06-04 09:46] LABS: Syphilis Nonreactive (Nonreactive)
[2025-06-04] MEDS: RINGERS LACTATED 1000 ML 1,000 ML 100 ML IV ×3 (14:05→21:18)
--- NOTE | 2025-06-04 20:00 | ESHP_ITS ---
Documentation for date of: 06/04/25 OB Labor/Induct. HPI History of Present Illness Chief complaint: Scheduled induction of labor : 4 Term pregnancies: 2 pregnancies: 0 Living children: 2 History of Abortions: Spontaneous and Elective: 1 History of sections: No History of : No Date of last menstrual period: 08/28/24 KAREN: 06/04/25 Gestational Age (weeks): 40 Gestational Age (days): 0 Gestational age based on last menstrual period: 40 History of present illness: Patient is a 29-year-old M4T4-0-0-3 with all care uncomplicated with Susan at [facility]. February records are on the chart. She was scheduled for an induction of labor for term. She is 40-0/7 weeks. Her only significant past medical history is bleeding down to a hemoglobin of 4.5 after a spontaneous miscarriage in the past. She had a transfusion. She denies heavy bleeding after her other 2 vaginal deliveries. Of note she is Upper Sorbian- speaking only. Her group B strep is negative. History of Present Dating criteria: LMP confirmed by 1st trimester US Adequate Care: Yes Ultrasounds: normal mid trimester US Obstetrical complications: none Medical complications: none Labs Maternal Blood Type: O Neg Labs: Positive: Rubella Titre, Negative: RPR, Hepatitis B, HIV, Chlamydia, Gonorrhea and Group Beta Strep and Unknown: Herpes Type 1, Herpes Type 2 and Covid-19 Past Medical History Surgical History SURGICAL: Negative Section Meds Home Medications and Allergies Home Medications ?Medication ?Instructions ?Recorded ?Confirmed ?Type vitamins with calcium 1 tab PO QDAY 11/10/18 06/04/25 History no.72-iron 27 mg-folic acid 1 mg tablet ( Vitamins Plus Low Iron) Allergies Allergy/AdvReac Type Severity Reaction Status Date / Time No Known Allergies Allergy Verified 06/04/25 09:56 OB Exam Physical Exam Vital signs: Temp Pulse Resp BP Pulse Ox O2 Del Method 98.3 F 86 16 116/78 100 Room Air 06/04/25 19:06 06/04/25 19:55 06/04/25 19:06 06/04/25 19:55 06/04/25 19:56 06/04/25 16:00 Detailed Labor and Delivery Exam Effacement (%): 70 Cervix position: mid station: -2 Consistency: medium Presentation: Vertex Membranes: intact Baseline heart rate: 150 monitor accelerations: 15x15 monitor decelerations: None keno terminal operator variability: Moderate (11-25) Contraction frequency (min): Irregular OB Results Labs 06/04/25 08:40 Labs: Short CBC 06/04/25 Range/Units 08:40 WBC 7.5 (3.6-11.0) Thou/mm3 Hgb 10.5 L (12.0-16.0) g/dL Hct 32.0 L (36.0-46.0) % Plt Count 185 (140-440) Thou/mm3 OB Assessment & Plan Assessment and Plan (1) Supervision of high risk in third trimester: Status: Acute Assessment and plan: Admit for induction of labor at term. Additional Plan Induction method: per misoprostol protocol Plan: induction
--- NOTE | 2025-06-04 20:16 | PD.LDPN ---
Documentation for date of: 06/04/25 OB Labor Progress Note Pain Control Pain control: tolerating well and epidural Pelvic Exam Dilation (cm): 5 Effacement (%): 70 station: -2 Amniotic membrane status: Ruptured Comments: AROM 1832. Thick meconium. IUPC placed Contractions Monitor mode: Internal Contraction frequency: Every 3 minutes Contraction intensity: Moderate Status status: Category l Assessment and Plan Assessment: induction ongoing Plan OB labor note: continuous present management Comments: If contractions spaced, will proceed with augmentation with Pitocin.
[2025-06-04] MEDS: OXYTOCIN in NS 20 units 20 UNIT/1,000 ML BAG 125 UNIT IV (23:28)
[2025-06-05] VITALS (14 sets, daily range): BP systolic 91–129; BP diastolic 55–66; PULSE 71–98; RESP 16–18; TEMP 36.7–36.9; O2SAT 96–98
[2025-06-05] MEDS: IBUPROFEN TAB 400 MG TABLET 800 MG PO (00:43)
[2025-06-05] MEDS: BENZO/LANO/ALOE (Dermoplast) 60 GM CAN 1 SPRAY TOP (01:12)
--- NOTE | 2025-06-05 04:55 | OBDSUM_ITS ---
Data (Johnson) Data Hx Section: No Maternal Blood Type: O Neg Rubella Titre: Positive RPR: Non-reactive Labs: Negative: RPR, Hepatitis B, HIV, Chlamydia, Gonorrhea and Group Beta Strep and Unknown: Herpes Type 1 and Herpes Type 2 : 4 Term: 2 : 0 Livin Abortions: Spontaneous & Theraputic: 1 Delivery Data (Johnson) Labor Data Initiation of labor: Induction Induction/Augmentation Agent: Cytotec-PO ROM date: 06/04/25 ROM time: 18:32 Amniotic membrane rupture type: Artificial Amniotic fluid description: Moderate Meconium Delivery Data EDC: 06/04/25 EDC calculated by:: LMP/early US confirmation Date of arrival to unit: 06/04/25 Time of arrival to unit: 07:30 Onset of labor date: 06/04/25 Onset of labor time: 08:45 Complete dilation date: 06/04/25 Complete dilation time: 23:00 [place] delivery date: 06/04/25 [place] delivery time: 23:23 Gestational age (weeks): 40 Gestational age (days): 0 Placenta delivery date: 06/04/25 Placenta delivery time: 23:27 Stage 1 total time: Labor - Stage 1 Duration 14 hours and 15 minutes Delivered by: dr spear Delivery nurse: maurice Lew [place] nurse: gonzalez lew [employer] Wirer at delivery: No Support person(s) at delivery: father of baby, and mother of patient Other staff at delivery: cole LEW/ Respiratory therapist Brittni Livingston Delivery Method Delivery method: Operative Vaginal Delivery Presentation: Vertex position: OA Anesthesia Type Anesthesia Type: Epidural Delivery Room Medications Delivery room medications: Pitocin 20 u IV Placenta Placenta delivery description: Spontaneous Cord blood sent to lab: Yes cord blood collection: Cord Blood Type and Venous Cord Blood Gas Episiotomy Episiotomy description: 1 degree Lacerations #1: Perineal: 1st degree Perineal repair Sutures used for repair: 4.0 Chromic EBL Estimated blood loss (ml): 100 Umbilical Cord cord description: 3 Vessels Additional Procedures The patient is a 29-year-old -0-1-2 with presented for an induction of labor at term the morning of 06/04/2025. She had 1 dose of oral Cytotec and kicked into labor. She had epidural placed. She had an AROM performed during labor. Moderate meconium was noted. An IUPC was placed. She was complete we dilated at 2300. She began pushing shortly after. She had a dense epidural and could not push well. With pushing the baby started having variable decelerations to the 80s to 90s wduring the first 4-5 contractions. These became more prolonged with pushing. A mighty VAC was called for and onr pull was attempted with pushing, however a good seal was not obtained and we had a pop-off. The patient again pushed through a couple of contractions on her own bringing the head down. As she was still having decelerations, a Kiwi vacuum was called for. This was placed on the 's head noting the baby to be in the occiput anterior position. The patient then pushed through approximately 1- 2 contractions with the Kiwi vacuum and delivered the head without difficulty at 2223. The head delivered in an occiput anterior position. No nuchal cord was noted. The shoulders and corpus was easily followed. The baby was immediately placed on mom's abdomen. After 1 minute the cord was clamped and cut and cord gases were sent. Cord blood was collected. The baby was noted to be vigorous and crying. Apgars were 8 and 9. The placenta was complete spontaneous and grossly normal delivering 4 minutes after the baby delivered. The only abnormality with the placenta was a velamentous insertion of the umbilical cord right at the edge of the placental disc. Patient sustained a small first-degree perineal laceration repaired in standard fashion using 4-0 chromic. EBL was 100 cc. Complications were none. Condition both mom and were in stable condition in the delivery room. Data (Johnson) Data [place]'s gender: Male Identification band number: [id number] weight (gms): 3650 g Weight (pounds): 8 lbs and 0.8 ozs 1 minute: 8 5 minutes: 9
[2025-06-05 05:55] LABS: Basophils # (Auto) 0.0 Thou/mm3 (0.0-0.2); Basophils % (Auto) 0 % (0-2.5); Eosinophils # (Auto) 0.0 Thou/mm3 (0.0-0.5); Eosinophils % (Auto) 0 % (0-10); Hematocrit 31.1 % (36.0-46.0); Hemoglobin 10.0 g/dL (12.0-16.0); Immature Granulocytes Auto 0.07 Thou/mm3 (0.00-0.00); Lymphocytes # (Auto) 1.0 Thou/mm3 (1.0-4.8); Lymphocytes % (Auto) 8 % (10-50); Mean Corpuscular HGB Conc 32.2 g/dl (31.0-37.0); Mean Corpuscular Hemoglobin 26.2 pg (25.0-35.0); Mean Corpuscular Volume 81 fL (80-100); Monocytes # (Auto) 1.0 Thou/mm3 (0.0-0.8); Monocytes % (Auto) 8 % (0-12); Neutrophils # (Auto) 10.6 Thou/mm3 (1.8-7.7); Neutrophils % (Auto) 83 % (37-80); Nucleated Red Blood Cell # 0.00 Thou/mm3 (0.00-0.00); Nucleated Red Blood Cell % 0 /100 WBC (0); Platelet Count 170 Thou/mm3 (140-440); RDW Standard Deviation 49.7 fL (36.4-46.3); Red Blood Count 3.82 Miln/mm3 (4.00-5.20); White Blood Count 12.7 Thou/mm3 (3.6-11.0)
--- NOTE | 2025-06-05 08:13 | PD.LDPPPRG ---
Subjective Subjective Interval history: Delivery type: Patient doing well this morning. No acute complaints. Ambulating, tolerating p.o. and voiding without difficulty. HTN/Pre-Eclampsia screen: No chest pain, shortness of breath, headache, visual changes, epigastric or right upper quadrant pain. Breast-feeding, lochia diminishing. Bowel: Flatus+/ BM+ Exam Vital Signs Temp Pulse Resp BP Pulse Ox O2 Del Method 98.1 F 87 16 99/60 96 Room Air 06/05/25 03:40 06/05/25 03:40 06/05/25 03:40 06/05/25 03:40 06/05/25 03:40 06/05/25 03:40 Constitutional Constitutional: no acute distress Routine HEENT Exam Head: Present normocephalic and atraumatic Eye: Present EOMI and PERRL ENT: Present mucous membranes moist Routine Neck Exam Neck: Present supple and trachea midline Routine Respiratory Exam Respiratory: Present chest non-tender, lungs clear, normal breath sounds and no resp distress Routine Cardiovascular Exam Cardiovascular: Present RRR Routine Abdominal Exam Abdominal: Present soft and normoactive bowel sounds Routine Extremities Exam Extremities: Present full ROM Routine Skin Exam Skin: Present intact, dry and warm Routine Neurological Exam Neurological: Present alert, oriented X3 and CN II-XII intact Routine Psychiatric Exam Psychiatric: Present normal affect and normal thought process Objective Labs 06/05/25 05:25 Labs: Laboratory Results - last 24 hr 06/04/25 06/05/25 08:40 05:25 WBC 7.5 12.7 H D RBC 4.08 3.82 L Hgb 10.5 L 10.0 L Hct 32.0 L 31.1 L MCV 78 L 81 MCH 25.7 26.2 MCHC 32.8 32.2 RDW Std Deviation 49.1 H 49.7 H Plt Count 185 170 Neut % (Auto) 75 83 H Lymph % (Auto) 14 8 L [place] % (Auto) 8 8 Eos % (Auto) 1 0 Baso % (Auto) 1 0 Neut # (Auto) 5.6 10.6 H Lymph # (Auto) 1.1 1.0 [place] # (Auto) 0.6 1.0 H Eos # (Auto) 0.1 0.0 Baso # (Auto) 0.0 0.0 Immature Gran # (Auto) 0.10 H 0.07 H Absolute Nucleated RBC 0.00 0.00 Immature Gran % 1 H 1 H Nucleated RBC % 0 0 Syphilis Serology Nonreactive Blood Type O Negative Antibody Screen NEGATIVE Blood Bank Wristband ID Yes Assessment & Plan Problem List (1) Supervision of high risk in third trimester: Status: Acute (2) Vaginal delivery: Status: Acute Assessment and plan: 1. Continue routine /post-op care 2. Labs reviewed, cbc appropriate 3. Remove dressing/[place] 4. Encourage to ambulate, shower 5. Encourage PO intake, breast feeding 6. Late night delivery, anticipate discharge home tomorrow Time Spent With Patient Time: Total time spent is greater than 50% in coordination of care (as documented) at patient's floor/unit and/or counseling patient:
[2025-06-05] MEDS: FERROUS SULF 325 MG TABLET PO ×2 (08:42→20:58)
[2025-06-05] MEDS: DOCUSATE SOD 100 MG CAPSULE PO ×2 (08:42→20:58)
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
[2025-06-06 04:00] VITALS: BP 103/64; PULSE 67; RESP 16; TEMP 36.4; O2SAT 98
[2025-06-06 07:55] VITALS: BP 106/64; PULSE 80; RESP 16; TEMP 36.6; O2SAT 97
--- NOTE | 2025-06-06 09:41 | PD.LDPPPRG ---
Subjective Subjective Interval history: The patient is a 29-year-old G4 now P3013 day #2 status post vaginal delivery around [id number] Grace. She usually sees [facility] for care. Patient is resting comfortable in bed with her baby on her chest. She denies fevers chills heavy vaginal bleeding. She is voiding. She is ambulating. She is passing flatus and tolerating a general diet. She would like to go home. Of note she is Nepali-speaking only and the entire exam and interview performed with Lashell LEW, labor and delivery nurse. Exam Vital Signs Temp Pulse Resp BP Pulse Ox O2 Del Method 97.9 F 80 16 106/64 97 Room Air 06/06/25 07:55 06/06/25 07:55 06/06/25 07:55 06/06/25 07:55 06/06/25 07:55 06/06/25 07:55 Narrative Exam Fundus is firm 4 cm below umbilicus. Extremities show no significant edema or erythema. Labs and vital signs are reviewed and within normal limits. Objective Labs 06/05/25 05:25 Assessment & Plan Problem List (1) Supervision of high risk in third trimester: Status: Acute (2) Vaginal delivery: Problem details: Patient is day #2 status post vaginal delivery with first-degree perineal laceration. She will be discharged home today. Discharge instructions were given including no intercourse or swimming for 6 weeks. Follow-up in 6 weeks Status: Acute Time Spent With Patient Time: Total time spent is greater than 50% in coordination of care (as documented) at patient's floor/unit and/or counseling patient: Time with patient: less than 15 minutes
--- NOTE | 2025-06-06 09:53 | ESDS_ITS ---
DS: Providers Provider Date of admission: 06/04/25 07:21 Primary care physician: Kemal Rico MD Admitting Provider: Kelsea [facility] ([facility]) Attending Provider on Admission: Fei Cantu MD Consults: 06/04/25 23:54 Referral Routine Comment: Attending Provider on DC: Kelsea Grace MD ([facility]) Discharging Provider: Kelsea Grace MD ([facility]) Anticipated date of discharge: 06/06/25 DS: Diagnosis Discharge Diagnosis (1) Vaginal delivery: Status: Acute (2) Term delivered: Status: Acute Assessment & Plan: Patient is day #2 status post vaginal delivery stable. She will be discharged home. Discharge instructions given. No other obstetrical problems or chronic medical problems. Problem List Completed Was Problem List Reviewed/Reconciled?: Yes Summary/Hosp Course Brief History: Patient is a 29-year-old [id number] with all care uncomplicated with [facility] at [facility]. February records are on the chart. She was scheduled for an induction of labor for term. She is 40-0/7 weeks. Her only significant past medical history is bleeding down to a hemoglobin of 4.5 after a spontaneous miscarriage in the past. She had a transfusion. She denies heavy bleeding after her other 2 vaginal deliveries. Of note she is Belgian- speaking only. Her group B strep is negative. Please see history and physical for further details. Patient underwent a vaginal delivery approximately 2300 on 06/04/2025. She had a small first-degree perineal laceration. Please see the delivery note for further details. Her course was uncomplicated. Patient reported no heavy bleeding, no fevers or chills. She is breast and bottlefeeding. Her predelivery hemoglobin was 10.5. Her postdelivery hemoglobin was 10. Her vital signs remained stable. Patient was discharged home day #2 in stable condition. Peripartum Data Delivery Method: Operative Vaginal Delivery Episiotomy Description: 1 degree complications: none Status at Discharge Cognitive/behavioral status at discharge: Is alert and oriented x 3 in no apparent distress. Functional status at discharge: independent ambulation Overall status at discharge: patient is progressing back to baseline Time Spent with Patient Time attestation: Total time spent providing and/or coordinating discharge services: Time spent: Less than 30 minutes Specific discharge activities: Pelvic rest x 6 weeks. No intercourse, tampons, douching, swimming pools x 6 weeks. Exam Vital Signs Temp Pulse Resp BP Pulse Ox O2 Del Method 97.9 F 80 16 106/64 97 Room Air 06/06/25 07:55 06/06/25 07:55 06/06/25 07:55 06/06/25 07:55 06/06/25 07:55 06/06/25 07:55 Narrative Exam Patient is alert and oriented x 3 in no apparent distress. Fundus is firm. Extremities show no significant edema or erythema. Discharge Plan Plan Patient Disposition: HOME (Self Care) Disposition Comment: Stable Patient condition on transfer: Stable Prescriptions/Referrals Prescriptions/Med Rec: New ibuprofen 400 mg Tablet 800 mg PO Q8H PRN (Reason: See Comments) Qty: 60 0RF docusate sodium 100 mg Capsule 100 mg PO BID Qty: 60 0RF Continued Vitamin Plus Low Iron 27 mg iron- 1 mg Tablet 1 tab PO QDAY No Action misoprostol 200 mcg tablet 800 mcg PO .x1 Qty: 4 0RF Rx Instructions: Take 06/27/2024, morning ferrous sulfate 324 mg (65 mg iron) tablet,delayed release (DR/EC) 324 mg PO BID Qty: 60 0RF ferrous sulfate 325 mg (65 mg iron) tablet 325 mg PO BID Qty: 60 5RF ondansetron 4 mg tablet,disintegrating 4 mg PO TID PRN (Reason: nausea and vomiting) Qty: 30 0RF acetaminophen 500 mg capsule 1,000 mg PO Q8HR PRN (Reason: pain) Qty: 30 0RF Referrals: Kemal Rico MD [Primary Care Provider] - Patient/Caregiver Discharge Instructions Discharge Activity: activity as tolerated Other Discharge Activity Instructions:: Pelvic rest x 6 weeks Other Discharge Diet Instructions: No intercourse, tampons, douching, swimming, or bathtubs x 6 weeks. Call with fevers, heavy vaginal bleeding or severe depression. [facility] with [facility] for care. Call for an appointment for 2 to 4 weeks. Education Materials: After a Vaginal , After Delivery Concerns Print Language: Belgian Activity Restrictions/Additional Instructions: Pelvic rest x 6 weeks no intercourse tampons or douching bathtubs for 6 weeks. Call for heavy bleeding fevers chills or depression Stand Alone Forms: Cortney Award Info., Patient Portal Info Letter Discharge Order Discharge Orders: Discharge (Routine); Ordered 06/06/25 Ordered By: Kelsea Grace ([facility]) Planned Discharge Date 06/06/25
[2025-06-06] MEDS: ACETAMINOPHEN 325 MG TABLET 650 MG PO (11:32)
[2025-06-06] MEDS: FERROUS SULF 325 MG TABLET PO (11:32)
[2025-06-06] MEDS: DOCUSATE SOD 100 MG CAPSULE PO (11:32)
== END 2025-06-06 12:00 | disposition home or self-care (01) | DRG 560 ==
LOC: S4SX 14:19 → S4NX 06-05 02:58
PROVIDERS: Admitting Provider Obstetrics & Gynecology; PCP Family Medicine; Visit Provider Obstetrics & Gynecology
DX: O43.123 Velamentous insertion of umbilical cord, third trimester (principal); O70.0 First degree perineal laceration during delivery; O76 Abnormality in fetal heart rate and rhythm complicating labor and delivery; O77.0 Labor and delivery complicated by meconium in amniotic fluid; Z37.0 Single live birth; Z3A.40 40 weeks gestation of pregnancy
CPT/HCPCS: 36415; 59409; 82803; 85025; 86780; 86850; 86900; 86901; 94762; J2371; J2590; J2795; J7120; A9270